=== PATIENT | male | born 1970 | race Caucasian/White ===

== ENCOUNTER → 2017-01-11 | Outpatient (CLI) | payer MEDICARE, OTHER ==
[~2017-01-11] MED LIST: ADDERALL30 MG PO; CELEXA 20MG20 MG/TAB PO; CEPHALEXIN500 M1 PO; CLARITIN 1010 MG/TAB PO; DESYREL 100MG100 MG PO; DOXYCYCLINE 10100 MG PO; FLEXERIL5 MG PO; FLONASEALLERGY NS; NEXIUM 20MG20 MG PO; NORVASC 10MG10 MG PO; PRINIVIL40 MG PO; PROAIR HFA0.09 MG/AC IH; REVATIO20 MG PO; TESTOSTERONE IM; VALIUM 2MG T2 MG/TAB PO; VALIUM 5MG T5 MG/TAB PO; VICOPROFEN 7.51 TAB PO; VYVANSE60 MG PO; WELLBUTRIN SR150 M1 PO; XANAX2 MG PO
== END ==
LOC: BHSO 09:35
DX: F90.0 Attention-deficit hyperactivity disorder, predominantly inattentive type (principal)

== ENCOUNTER 2017-02-04 11:18 | Emergency (ER) | payer MEDICARE, OTHER ==
[~2017-02-04] VITALS: Ht 182.9 cm; Wt 102.3 kg
[~2017-02-04 11:18] MED LIST changes: -CELEXA 20MG20 MG/TAB PO; -CLARITIN 1010 MG/TAB PO; -DESYREL 100MG100 MG PO; -DOXYCYCLINE 10100 MG PO; -FLONASEALLERGY NS; -NEXIUM 20MG20 MG PO; -PROAIR HFA0.09 MG/AC IH; -REVATIO20 MG PO; -TESTOSTERONE IM; -VYVANSE60 MG PO; -WELLBUTRIN SR150 M1 PO
[2017-02-04 11:22] VITALS: BP 112/73; PULSE 89; TEMP 97.8
[2017-02-04] MEDS ORDERED: PROAIR HFA0.09 MG/AC IH (12:07)
[2017-02-04] MEDS ORDERED: CELEXA 20MG20 MG/TAB PO (12:08)
[2017-02-04] MEDS ORDERED: WELLBUTRIN SR150 M1 PO (12:08)
[2017-02-04] MEDS ORDERED: NORVASC 10MG10 MG PO (12:08)
[2017-02-04] MEDS ORDERED: NEXIUM 20MG20 MG PO (12:09)
[2017-02-04] MEDS ORDERED: FLONASEALLERGY NS (12:09)
[2017-02-04] MEDS ORDERED: PRINIVIL40 MG PO (12:09)
[2017-02-04] MEDS ORDERED: CLARITIN 1010 MG/TAB PO (12:10)
[2017-02-04] MEDS ORDERED: REVATIO20 MG PO (12:11)
[2017-02-04] MEDS ORDERED: TESTOSTERONE IM (12:12)
[2017-02-04] MEDS ORDERED: DESYREL 100MG100 MG PO (12:13)
[2017-02-04] MEDS ORDERED: VYVANSE60 MG PO (12:14)
[2017-02-04 12:25] LABS: BASO # 0.1 (0.0-0.2); BASO % 1.1 % (0.0-2.0); EOS # 0.1 (0.0-0.7); EOS % 1.6 % (0-4.0); GRAN # 3.4 (1.4-6.5); HEMATOCRIT 44.4 % (42.0-52.0); HEMOGLOBIN 15.4 g/dl (13.5-18.0); LYMPH # 2.2 (1.2-3.4); LYMPH % 35.3 % (20.0-51.0); MEAN CELL VOLUME 92 fl (80.0-100.0); MEAN CORPUSCULAR HEMOGLOBIN 32 pg (27.0-31.0); MEAN CORPUSCULAR HGB CONC 35 g/dl (33.0-37.0); MONO # 0.6 (0.1-0.6); MONO % 8.7 % (1.7-9.3); PLATELET COUNT 247 K/mm3 (130-400); RED BLOOD COUNT 4.83 M/mm3 (4.20-5.60); REDCELL DISTRIBUTION WIDTH-CV 12.1 % (11.5-14.5); WHITE BLOOD COUNT 6.3 K/mm3 (4.8-10.8)
[2017-02-04 12:32] LABS: CALCIUM 8.8 mg/dL (8.4-10.2); CREATININE, serum 1.02 mg/dL (0.66-1.25); POTASSIUM 3.5 mmol/L (3.4-5.0)
[2017-02-04 12:48] LABS: PARTIAL THROMBOPLASTIN TIME 34.9 SECONDS (26.0-37.0)
[2017-02-04] MEDS ORDERED: DOXYCYCLINE 10100 MG PO (13:02)
== END 2017-02-04 13:09 | disposition home or self-care (01) ==
LOC: COL.ER 11:18
PROVIDERS: Physician Assistant
DX: R22.41 Localized swelling, mass and lump, right lower limb (principal); M79.661 Pain in right lower leg; I10 Essential (primary) hypertension; F43.10 Post-traumatic stress disorder, unspecified; Z88.0 Allergy status to penicillin; F17.210 Nicotine dependence, cigarettes, uncomplicated

== ENCOUNTER → 2017-04-12 | Outpatient (CLI) | payer MEDICARE, OTHER ==
[~2017-04-12] MED LIST changes: +CELEXA 20MG20 MG/TAB PO; +CLARITIN 1010 MG/TAB PO; +DESYREL 100MG100 MG PO; +DOXYCYCLINE 10100 MG PO; +FLONASEALLERGY NS; +NEXIUM 20MG20 MG PO; +PROAIR HFA0.09 MG/AC IH; +REVATIO20 MG PO; +TESTOSTERONE IM; +VYVANSE60 MG PO; +WELLBUTRIN SR150 M1 PO
== END ==
LOC: BHSO 15:50
DX: F90.0 Attention-deficit hyperactivity disorder, predominantly inattentive type (principal)

== ENCOUNTER → 2017-10-10 | Outpatient (CLI) | payer MEDICARE | LOC: BHSO 13:13 | DX: F90.0 Attention-deficit hyperactivity disorder, predominantly inattentive type (principal) ==

== ENCOUNTER → 2017-11-24 | Outpatient (CLI) | payer MEDICARE | LOC: BHSO 15:28 | DX: F43.10 Post-traumatic stress disorder, unspecified (principal) | CPT/HCPCS: G0463 ==

== ENCOUNTER → 2018-01-11 | Outpatient (CLI) | payer MEDICARE | LOC: BHSO 13:43 | DX: F90.0 Attention-deficit hyperactivity disorder, predominantly inattentive type (principal) | CPT/HCPCS: G0463 ==

== ENCOUNTER → 2018-04-12 | Outpatient (CLI) | payer MEDICARE | LOC: BHSO 14:51 | DX: F90.0 Attention-deficit hyperactivity disorder, predominantly inattentive type (principal) | CPT/HCPCS: G0463 ==

== ENCOUNTER → 2018-12-08 | Outpatient (CLI) | payer MEDICARE | LOC: BHSO 15:44 | DX: F43.10 Post-traumatic stress disorder, unspecified (principal) | CPT/HCPCS: G0463 ==

== ENCOUNTER → 2019-07-06 | Outpatient (CLI) | payer MEDICARE | LOC: BHSO 14:46 | DX: F90.0 Attention-deficit hyperactivity disorder, predominantly inattentive type (principal) | CPT/HCPCS: G0463 ==

== ENCOUNTER → 2020-01-03 | Outpatient (CLI) | payer MEDICARE | LOC: BHSO 15:04 | DX: F90.0 Attention-deficit hyperactivity disorder, predominantly inattentive type (principal) | CPT/HCPCS: G0463 ==